=== PATIENT | female | born 2000 | race Caucasian/White ===

== ENCOUNTER 2022-11-05 17:28 | Emergency (ER) | payer MEDICAID ==
[~2022-11-05] VITALS: Ht 165.1 cm; Wt 81.6 kg
[~2022-11-05 17:28] MED LIST: ALBU0.0912 INH
[2022-11-05 17:45] VITALS: BP 143/80; PULSE 81; RESP 18; TEMP 97.9; O2SAT 98
[2022-11-05] MEDS ORDERED: ALBU0.0912 INH (19:14)
[2022-11-05] MEDS ORDERED: METH4TAB1 PO (19:14)
[2022-11-05 19:19] VITALS: BP 143/80; PULSE 81; RESP 18; TEMP 97.9; O2SAT 98
--- NOTE | 2022-11-05 19:19 | NUR ---
D/C BY , PRESCRIBED PROVENTIL HFA MDI AND METHYLPREDNISOLONE
== END 2022-11-05 19:19 | disposition home or self-care (01) ==
LOC: MED 17:28
DX: J45.909 Unspecified asthma, uncomplicated (principal); Z79.899 Other long term (current) drug therapy
CPT/HCPCS: 99283